=== PATIENT | male | born 1955 ===

== ENCOUNTER → 2020-05-23 | Outpatient (CLI) | payer BC ==
[2020-05-23 10:29] LABS: BASOPHILS ABSOLUTE AUTO 0.06 K/mm3 (0.00-0.23); BASOPHILS PERCENT AUTO 1 % (0-2); EOSINOPHILS ABSOLUTE AUTO 0.06 K/mm3 (0.00-0.68); EOSINOPHILS PERCENT AUTO 1 % (0-6); Hematocrit 46.7 % (37.0-53.0); Hemoglobin 15.8 g/dL (13.5-17.5); IMMATURE GRAN ABSOLUTE AUTO 0.04 K/mm3 (0.00-0.10); IMMATURE GRAN PERCENT AUTO 1 % (0-1); LYMPHOCYTES ABSOLUTE AUTO 1.39 K/mm3 (0.84-5.20); LYMPHOCYTES PERCENT AUTO 18 % (21-46); MONOCYTES PERCENT AUTO 9 % (4-13); Mean Corpuscular HGB 30.7 pg (26.0-34.0); Mean Corpuscular HGB Conc 33.8 g/dL (31.5-36.5); Mean Corpuscular Volume 91 fL (80-100); Mean Platelet Volume 11.5 fL (9.1-12.4); NEUTROPHILS ABSOLUTE AUTO 5.34 K/mm3 (1.96-9.15); NEUTROPHILS PERCENT AUTO 70 % (41-73); Platelet Count 231 K/mm3 (150-400); RDW Coefficient Variation 14.4 % (11.7-14.2); RDW Standard Deviation 48.5 fL (35.1-46.3); Red Blood Cell Count 5.15 M/mm3 (4.30-5.90); White Blood Cell Count 7.59 K/mm3 (4.00-11.30)
[2020-05-23 10:47] LABS: Alanine Aminotransfer (ALT/SGP 27 U/L (12-78); Albumin, Blood 3.9 g/dL (3.4-5.0); Albumin/Globulin Ratio 0.8 (0.8-1.8); Alk Phos 63 U/L (40-126); Anion Gap 12 mmol/L (6-16); Aspartate Aminotrans (AST/SGOT 24 U/L (12-37); Bilirubin, Total 1.3 mg/dL (0.1-1.0); Blood Urea Nitrogen 11 mg/dL (8-24); Bun/Creatinine Ratio 9.5 (12.0-20.0); CO2, Blood 24 mmol/L (21-32); Calcium, Blood 9.1 mg/dL (8.5-10.1); Chloride, Blood 100 mmol/L (98-108); Creatinine, Blood 1.16 mg/dL (0.60-1.20); Free Thyroxine 1.06 ng/dL (0.70-1.60); Glomerular Filtration Rate >60 (60-); Glucose, Blood 102 mg/dL (70-99); Potassium, Blood 3.6 mmol/L (3.5-5.5); Sodium, Blood 136 mmol/L (136-145); Thyroid Stimulating Hormone 1.781 uIU/mL (0.360-4.800); Total Protein, Blood 8.9 g/dL (6.4-8.2); Uric Acid, Blood 8.6 mg/dL (3.5-7.2)
== END | disposition home or self-care (01) ==
LOC: LAB SHORT 10:23 → LAB EV 10:23
PROVIDERS: General Practice
DX: I10 Essential (primary) hypertension (principal); Z87.39 Personal history of other diseases of the musculoskeletal system and connective tissue
CPT/HCPCS: 80053; 84439; 84443; 84550; 85025

== ENCOUNTER → 2020-12-13 | Outpatient (CLI) | payer BC ==
[2020-12-13 14:46] LABS: BASOPHILS ABSOLUTE AUTO 0.07 K/mm3 (0.00-0.23); BASOPHILS PERCENT AUTO 1 % (0-2); EOSINOPHILS ABSOLUTE AUTO 0.14 K/mm3 (0.00-0.68); EOSINOPHILS PERCENT AUTO 2 % (0-6); Hematocrit 51.2 % (37.0-53.0); Hemoglobin 16.9 g/dL (13.5-17.5); IMMATURE GRAN ABSOLUTE AUTO 0.05 K/mm3 (0.00-0.10); IMMATURE GRAN PERCENT AUTO 1 % (0-1); LYMPHOCYTES ABSOLUTE AUTO 1.84 K/mm3 (0.84-5.20); LYMPHOCYTES PERCENT AUTO 20 % (21-46); MONOCYTES ABSOLUTE AUTO 0.91 K/mm3 (0.16-1.47); MONOCYTES PERCENT AUTO 10 % (4-13); Mean Corpuscular HGB 30.5 pg (26.0-34.0); Mean Corpuscular Volume 92 fL (80-100); Mean Platelet Volume 12.3 fL (9.1-12.4); NEUTROPHILS ABSOLUTE AUTO 6.09 K/mm3 (1.96-9.15); NEUTROPHILS PERCENT AUTO 67 % (41-73); Platelet Count 229 K/mm3 (150-400); RDW Coefficient Variation 14.6 % (11.7-14.2); RDW Standard Deviation 49.9 fL (35.1-46.3); Red Blood Cell Count 5.54 M/mm3 (4.30-5.90)
[2020-12-13 15:11] LABS: Alanine Aminotransfer (ALT/SGP 25 U/L (12-78); Albumin, Blood 3.6 g/dL (3.4-5.0); Albumin/Globulin Ratio 0.7 (0.8-1.8); Alk Phos 65 U/L (40-126); Anion Gap 10 mmol/L (6-16); Aspartate Aminotrans (AST/SGOT 18 U/L (12-37); Bilirubin, Total 0.8 mg/dL (0.1-1.0); Blood Urea Nitrogen 14 mg/dL (8-24); Bun/Creatinine Ratio 9.4 (12.0-20.0); CO2, Blood 24 mmol/L (21-32); Chloride, Blood 104 mmol/L (98-108); Creatinine, Blood 1.49 mg/dL (0.60-1.20); Globulin, Blood 4.9 g/dL (2.2-4.0); Glomerular Filtration Rate 47 (60-); Glucose, Blood 133 mg/dL (70-99); Potassium, Blood 3.5 mmol/L (3.5-5.5); Sodium, Blood 138 mmol/L (136-145); Thyroid Stimulating Hormone 1.356 uIU/mL (0.360-4.800); Total Protein, Blood 8.5 g/dL (6.4-8.2); Troponin I <0.017 ng/mL (0.000-0.040)
== END | disposition home or self-care (01) ==
LOC: LAB EV 14:42 → LAB SHORT 14:42
PROVIDERS: Chiropractor
DX: R07.9 Chest pain, unspecified (principal); R00.2 Palpitations
CPT/HCPCS: 80053; 84443; 84484; 85025

== ENCOUNTER 2021-09-10 04:57 | Observation (INO) | payer OTHER, BC ==
[~2021-09-10] VITALS: Ht 188 cm; Wt 151.1 kg
[2021-09-10] MEDS ORDERED: LISI20 PO (05:26)
[2021-09-10] MEDS ORDERED: VALSARTAN320 MG PO (05:27)
[2021-09-10] MEDS ORDERED: MULVITA PO (05:28)
[2021-09-10] MEDS ORDERED: DIAZ5 PO (05:29)
[2021-09-10 06:21] LABS: BASOPHILS ABSOLUTE AUTO 0.04 K/mm3 (0.00-0.23); BASOPHILS PERCENT AUTO 0 % (0-2); EOSINOPHILS ABSOLUTE AUTO 0.07 K/mm3 (0.00-0.68); EOSINOPHILS PERCENT AUTO 1 % (0-6); Hematocrit 46.5 % (37.0-53.0); IMMATURE GRAN ABSOLUTE AUTO 0.05 K/mm3 (0.00-0.10); IMMATURE GRAN PERCENT AUTO 1 % (0-1); LYMPHOCYTES ABSOLUTE AUTO 1.41 K/mm3 (0.84-5.20); LYMPHOCYTES PERCENT AUTO 14 % (21-46); MONOCYTES ABSOLUTE AUTO 1.55 K/mm3 (0.16-1.47); MONOCYTES PERCENT AUTO 15 % (4-13); Mean Corpuscular HGB 31.2 pg (26.0-34.0); Mean Corpuscular HGB Conc 34.4 g/dL (31.5-36.5); Mean Corpuscular Volume 91 fL (80-100); Mean Platelet Volume 12.6 fL (9.1-12.4); NEUTROPHILS ABSOLUTE AUTO 7.33 K/mm3 (1.96-9.15); NEUTROPHILS PERCENT AUTO 70 % (41-73); Platelet Count 201 K/mm3 (150-400); RDW Coefficient Variation 13.6 % (11.7-14.2); RDW Standard Deviation 46.1 fL (35.1-46.3); Red Blood Cell Count 5.13 M/mm3 (4.30-5.90); White Blood Cell Count 10.45 K/mm3 (4.00-11.30)
[2021-09-10 06:34] LABS: Alanine Aminotransfer (ALT/SGP 21 U/L (12-78); Albumin, Blood 3.3 g/dL (3.4-5.0); Albumin/Globulin Ratio 0.7 (0.8-1.8); Alk Phos 67 U/L (50-136); Anion Gap 8 mmol/L (6-16); Aspartate Aminotrans (AST/SGOT 14 U/L (12-37); Bilirubin, Total 1.4 mg/dL (0.1-1.0); Blood Urea Nitrogen 11 mg/dL (8-24); Bun/Creatinine Ratio 9.9 (12.0-20.0); CO2, Blood 23 mmol/L (21-32); Calcium, Blood 8.9 mg/dL (8.5-10.1); Chloride, Blood 107 mmol/L (98-108); Creatinine, Blood 1.11 mg/dL (0.60-1.20); Glomerular Filtration Rate >60 (60-); Glucose, Blood 124 mg/dL (70-99); Potassium, Blood 3.3 mmol/L (3.5-5.5); Sodium, Blood 138 mmol/L (136-145); Total Protein, Blood 8.3 g/dL (6.4-8.2)
[2021-09-10] MEDS ORDERED: HYDCHL25 PO (22:01)
--- NOTE | 2021-09-11 01:00 | NUR ---
PATIENT STRAIGHT CATHC HIMSELF 4 TIMES PER DAY DUE TO HAVING A NEUROGENIC BLADDER. 16 COMORAN WAS USED. PATIENT TOLERATED PROCEDURE WELL. STERILE TEHCNIQUES MAINTAINED THROUGHOUT. 700ML DARK DARIA URINE DRAINED UPON INSERTION.
[2021-09-11 01:26] LABS: Source, Urine Foley catheter
[2021-09-11 01:34] LABS: Appearance, Urine Clear (Clear); Bilirubin, Urine Neg (Neg); Blood, Urine 4+ (Neg); Color, Urine Yellow (P-Yellow); Glucose Qualitative, Urine Neg (Neg); Ketones, Urine 2+ (Neg); Leukocyte Esterase, Urine Neg (Neg); Nitrite, Urine Neg (Neg); Protein, Urine 2+ (Neg); Urobilinogen, Urine 2+ (Normal)
[2021-09-11 02:09] LABS: White Blood Cells, Urine 0-2 /hpf (0-5)
[2021-09-11 02:10] LABS: Bacteria Few /hpf; Hyaline Casts 0-2 /lpf (0-2); Mucus Light (0-Heavy); Squamous Epithelial Cells Rare /hpf (Few)
--- NOTE | 2021-09-11 05:27 | NUR ---
PM SHIFT SUMMARY: PATIENT ARRIVED TO UNIT AROUND 2200. C/O CHRONIC PAIN X 3 DAYS AND RLE WEAKNESS. HE HAS INCOMPLETE T9 PARAPLEGIA. HE SAYS HE HEARD "A POP" IN HIS BACK WHEN HE WAS ATTEMPTING TO ROLL OVER IN BED. NORMALLY, HE IS ABLE TO GET HIMSELF INTO HIS WHEELCHAIR ALONE. I INSERTED A NAVAS DUE TO HIM HAVING A NEUROGENIC BLADDER. MEDICAL HISTORY IS PRETTY EXTENSIVE. HE HAS SOME ERYTHEMA AROUND GROIN AND UNDER BELLY. LARGE SCAR ON SPINE FROM PREVIOUS SURGERIES. CM IS TRYING TO GET HIM INTO [facility] UNTIL A BED IS AVAILABLE AT THE [facility] IN [place].
--- NOTE | 2021-09-11 10:03 | NUR ---
EFM Initial Interview with Community Cleat Maker 1. Who did you speak with? Spoke with patient 2. What is the patient's prior level of functions? Patient lives his and son. Patient is paraplegic and not able to perform ADL's independently. and son assists with all ADL's. Patient has an electric wheelchair and handicapped set-up in the home for ADL's. 3. Does patient still drive? No, family and [facility] provides [facility] as needed. 4. POA/PCP/NOK: NOK: Karrie [phone] /PCP COOLER CONVEYOR LOADER Clarissa Arizmendi 5. ANTICIPATED DISCHARGE NEEDS/GOALS: SNF/[facility] (ER caser up coordinated) - DME: SNF/patient has needed DME's -Home Health: TBD/no agency preference -Medication Management: self/family. -[facility] 6. List barriers to discharge: No barriers on this date 7. Discharge Plan: today: 09/11/21 at [facility]/Follow up with PCP within 7 days (NAVIN will coordinate) 8. PCP Follow up appointment: Will be scheduled within seven calendar days of discharge. Explained importance of scheduling and attendance. Confirmed Number: [phone] 9. OTHER COMMENTS: Patient is a and has service connection benefits
[2021-09-11] MEDS ORDERED: ENOX40I SC (10:23)
[2021-09-11] MEDS ORDERED: HYDR1TAB94 PO (10:23)
[2021-09-11] MEDS ORDERED: ACET325 PO (10:23)
[2021-09-11] MEDS ORDERED: IBUP400 PO (10:23)
[2021-09-11] MEDS ORDERED: DOCU100 PO (10:23)
[2021-09-11] MEDS ORDERED: SENN187 PO (10:24)
[2021-09-11] MEDS ORDERED: OMEP20ER PO (10:24)
[2021-09-11] MEDS ORDERED: POTA10T PO (10:24)
[2021-09-11] MEDS ORDERED: ASPI325 PO (10:24)
[2021-09-11 12:53] LABS: Influenza A, PCR NEGATIVE (NEGATIVE); Influenza B, PCR NEGATIVE (NEGATIVE); Resp Syncytial Virus, PCR NEGATIVE (NEGATIVE)
[2021-09-11 12:59] LABS: SARS-Cov-2 (COVID-19) PCR, MMC POSITIVE (NEGATIVE)
--- NOTE | 2021-09-11 14:45 | NUR ---
State COVID referral emailed to [email or web address] and [facility] for [facility].
--- NOTE | 2021-09-11 18:32 | NUR ---
DISCHARGE PT WAS DISCHARGED [facility]IA [facility] AT 1530. ALL PAP[employer]WORK SENT WITH TRANSPORT TEAM AND REPORT CALLED AND GIVEN TO NURSE AT [facility].
--- NOTE | 2021-09-12 07:48 | NUR ---
Per Dr. Nguyen discharge appropriate. Patient does not oppose discharge. [facility]: [facility]. Patient tested positive today. Date of discharge: 09/11/2021 Date of admission: 09/10/2021 Provisional diagnosis at time of admission: Intractable back pain Final Diagnosis at time of discharge: Intractable back pain Transportation provided by: [facility] Ordered: None needed. Follow-ups needed: [facility]IN will contact patient to schedule hospital follow-up visit. Reinforced need to attend follow-up with option of telehealth appointment (COVID Positive). [facility] will coordinate follow-up visit due to transportation schedule. Provider/PCP: NEELAM Arizmendi When: WITHIN 1 WEEK Specialty: N/A When: N/A Confirmed numbers: Patient [phone] Spouse Karrie [phone] Comment: Explained to patient to contact PCP if any questions regarding medication management, social service needs, and if condition worsens go to Urgent Care/ER (patient discharged to SNF). No barriers to discharge. Patient has a strong support network.
== END 2021-09-11 16:16 ==
LOC: ER 04:57 → MEDS 04:58 → ER 21:40 → MEDS 21:40
PROVIDERS: Emergency Medicine; Hospitalist; Internal Medicine; ADMIT Internal Medicine
DX: M54.50 Low back pain, unspecified (principal); G82.22 Paraplegia, incomplete; G89.29 Other chronic pain; N31.9 Neuromuscular dysfunction of bladder, unspecified; I71.2 Thoracic aortic aneurysm, without rupture; I10 Essential (primary) hypertension; I48.0 Paroxysmal atrial fibrillation; E78.5 Hyperlipidemia, unspecified; G47.33 Obstructive sleep apnea (adult) (pediatric); F32.A Depression, unspecified; G62.9 Polyneuropathy, unspecified; U07.1 COVID-19
CPT/HCPCS: 0241U; 51702; 72128; 72131; 80053; 81001; 85025; 93005; 93010; 96372; 96374; 96375; 97162; 97530; 99285-25; A9270; G0378; J1650; J2270; J2405; J3360

== ENCOUNTER 2024-07-16 18:54 | Emergency (ER) | payer BC ==
[~2024-07-16] VITALS: Ht 170.2 cm; Wt 113.4 kg
[~2024-07-16 18:54] MED LIST: ACET325 PO; ASPI325 PO; DIAZ5 PO; DOCU100 PO; ENOX40I SC; HYDCHL25 PO; HYDR1TAB94 PO; IBUP400 PO; LISI20 PO; MULVITA PO; OMEP20ER PO; POTA10T PO; SENN187 PO; VALSARTAN320 MG PO
[2024-07-16 20:00] LABS: BASOPHILS ABSOLUTE AUTO 0.08 K/mm3 (0.00-0.23); BASOPHILS PERCENT AUTO 1 % (0-2); EOSINOPHILS ABSOLUTE AUTO 0.21 K/mm3 (0.00-0.68); EOSINOPHILS PERCENT AUTO 2 % (0-6); Hematocrit 47.2 % (37.0-53.0); Hemoglobin 15.8 g/dL (13.5-17.5); IMMATURE GRAN ABSOLUTE AUTO 0.06 K/mm3 (0.00-0.10); IMMATURE GRAN PERCENT AUTO 1 % (0-1); LYMPHOCYTES ABSOLUTE AUTO 2.12 K/mm3 (0.84-5.20); LYMPHOCYTES PERCENT AUTO 18 % (21-46); MONOCYTES ABSOLUTE AUTO 1.02 K/mm3 (0.16-1.47); MONOCYTES PERCENT AUTO 9 % (4-13); Mean Corpuscular HGB 30.7 pg (26.0-34.0); Mean Corpuscular HGB Conc 33.5 g/dL (31.5-36.5); Mean Corpuscular Volume 92 fL (80-100); Mean Platelet Volume 11.5 fL (9.1-12.4); NEUTROPHILS ABSOLUTE AUTO 8.43 K/mm3 (1.96-9.15); NEUTROPHILS PERCENT AUTO 71 % (41-73); Platelet Count 246 K/mm3 (150-400); RDW Standard Deviation 47.8 fL (35.1-46.3); Red Blood Cell Count 5.14 M/mm3 (4.30-5.90); White Blood Cell Count 11.92 K/mm3 (4.00-11.30)
[2024-07-16 20:19] LABS: Albumin, Blood 3.4 g/dL (3.4-5.0); Albumin/Globulin Ratio 0.7 (0.8-1.8); Bilirubin, Total 0.4 mg/dL (0.1-1.0); Bun/Creatinine Ratio 15.4 (12.0-20.0); Creatinine, Blood 1.69 mg/dL (0.60-1.20); Globulin, Blood 5.2 g/dL (2.2-4.0); Potassium, Blood 3.4 mmol/L (3.5-5.5); Total Protein, Blood 8.6 g/dL (6.4-8.2)
[2024-07-16] MEDS ORDERED: Nitrofurantoin/Nitrofuran Mac 100 MG Cap PO ONE (23:55)
[2024-07-16] MEDS ORDERED: NITR100CA PO (23:59)
[2024-07-17 00:20] VITALS: BP 128/69
== END 2024-07-17 00:21 | disposition home or self-care (01) ==
LOC: ER 18:54
PROVIDERS: Student in an Organized Health Care Education/Training Program
DX: N30.00 Acute cystitis without hematuria (principal); I10 Essential (primary) hypertension; E78.5 Hyperlipidemia, unspecified; I48.91 Unspecified atrial fibrillation; Z86.73 Personal history of transient ischemic attack (TIA), and cerebral infarction without residual deficits; Z87.442 Personal history of urinary calculi; Z79.899 Other long term (current) drug therapy
CPT/HCPCS: 80053; 85025; 99283-25; A9270

== ENCOUNTER 2024-07-23 11:02 | Inpatient (IN) | payer OTHER, BC ==
[~2024-07-23] VITALS: Ht 188 cm; Wt 136.1 kg
[~2024-07-23 11:02] MED LIST changes: +NITR100CA PO
[2024-07-23 11:37] LABS: BASOPHILS ABSOLUTE AUTO 0.08 K/mm3 (0.00-0.23); BASOPHILS PERCENT AUTO 1 % (0-2); EOSINOPHILS ABSOLUTE AUTO 0.16 K/mm3 (0.00-0.68); EOSINOPHILS PERCENT AUTO 2 % (0-6); Hematocrit 40.7 % (37.0-53.0); Hemoglobin 13.9 g/dL (13.5-17.5); IMMATURE GRAN ABSOLUTE AUTO 0.07 K/mm3 (0.00-0.10); IMMATURE GRAN PERCENT AUTO 1 % (0-1); LYMPHOCYTES ABSOLUTE AUTO 1.21 K/mm3 (0.84-5.20); LYMPHOCYTES PERCENT AUTO 11 % (21-46); MONOCYTES ABSOLUTE AUTO 1.39 K/mm3 (0.16-1.47); MONOCYTES PERCENT AUTO 13 % (4-13); Mean Corpuscular HGB 30.9 pg (26.0-34.0); Mean Corpuscular HGB Conc 34.2 g/dL (31.5-36.5); Mean Corpuscular Volume 90 fL (80-100); NEUTROPHILS ABSOLUTE AUTO 7.79 K/mm3 (1.96-9.15); NEUTROPHILS PERCENT AUTO 73 % (41-73); Platelet Count 257 K/mm3 (150-400); RDW Coefficient Variation 13.8 % (11.7-14.2); RDW Standard Deviation 45.8 fL (35.1-46.3)
[2024-07-23 11:58] LABS: Albumin, Blood 2.7 g/dL (3.4-5.0); Albumin/Globulin Ratio 0.5 (0.8-1.8); Bilirubin, Total 0.9 mg/dL (0.1-1.0); Calcium, Blood 9.3 mg/dL (8.5-10.1); Creatinine, Blood 1.67 mg/dL (0.60-1.20); Globulin, Blood 5.3 g/dL (2.2-4.0); Potassium, Blood 3.2 mmol/L (3.5-5.5)
[2024-07-23] MEDS ORDERED: Gabapentin 300 MG Cap PO ONE (16:15)
[2024-07-23] MEDS ORDERED: Ketorolac Tromethamine 15mg Vial IV ONE (16:15)
[2024-07-23] MEDS ORDERED: Acetaminophen 500 MG Tab PO ONE (16:15)
[2024-07-23 16:42] LABS: Source, Urine Clean Catch
[2024-07-23 17:00] LABS: Bilirubin, Urine Neg (Neg); Blood, Urine 1+ (Neg); Color, Urine Yellow (P-Yellow); Glucose Qualitative, Urine Neg (Neg); Ketones, Urine Neg (Neg); Leukocyte Esterase, Urine 1+ (Neg); Nitrite, Urine Neg (Neg); Protein, Urine 1+ (Neg); Urobilinogen, Urine NORM (Normal)
[2024-07-23 17:19] LABS: Appearance, Urine Hazy (Clear)
[2024-07-23 17:20] LABS: Bacteria Many /hpf; Hyaline Casts 0-2 /lpf (0-2); Mucus Light (0-Heavy); Squamous Epithelial Cells Few /hpf (Few)
[2024-07-23] MEDS ORDERED: CefTRIAXone Sodium 1,000 MG in NS 100 ML IV ONE (17:40)
[2024-07-23] MEDS ORDERED: Acetaminophen 325 MG TABLET PO PRN (18:50)
[2024-07-23] MEDS ORDERED: FLU VACC TS2024-25(6MOS UP)/PF 45 MCG/0.5 ML SYRINGE IM ONE (18:55)
[2024-07-23] MEDS ORDERED: Ondansetron HCl 2 MG / ML 2ML Vial IV PRN (18:55)
[2024-07-23] MEDS ORDERED: Lactobacil 2-S.Thermo-Bifido 1 1 Cap PO SCH (21:00)
[2024-07-23] MEDS ORDERED: Docusate Sodium 100 MG Cap PO SCH (21:00)
[2024-07-23 21:42] VITALS: BP 150/98
[2024-07-23] MEDS ORDERED: HYDROcodone 5-APAP 325 TAB PO PRN (22:50)
[2024-07-23] MEDS ORDERED: Sennosides 8.6 MG Tab PO PRN (22:50)
[2024-07-23] MEDS ORDERED: Diazepam 5 MG Tab PO PRN (22:50)
[2024-07-23] MEDS ORDERED: HydrALAZINE HCl 20 MG / ML 1ML Vial IV PRN (22:55)
[2024-07-23] MEDS ORDERED: Potassium Chloride 20 MEQ TabCR PO ONE (23:00)
[2024-07-24 04:57] LABS: BASOPHILS ABSOLUTE AUTO 0.09 K/mm3 (0.00-0.23); BASOPHILS PERCENT AUTO 1 % (0-2); EOSINOPHILS ABSOLUTE AUTO 0.39 K/mm3 (0.00-0.68); EOSINOPHILS PERCENT AUTO 4 % (0-6); Hematocrit 39.7 % (37.0-53.0); Hemoglobin 13.4 g/dL (13.5-17.5); IMMATURE GRAN ABSOLUTE AUTO 0.06 K/mm3 (0.00-0.10); IMMATURE GRAN PERCENT AUTO 1 % (0-1); LYMPHOCYTES ABSOLUTE AUTO 2.05 K/mm3 (0.84-5.20); LYMPHOCYTES PERCENT AUTO 19 % (21-46); MONOCYTES ABSOLUTE AUTO 1.44 K/mm3 (0.16-1.47); MONOCYTES PERCENT AUTO 13 % (4-13); Mean Corpuscular HGB 31.4 pg (26.0-34.0); Mean Corpuscular HGB Conc 33.8 g/dL (31.5-36.5); Mean Corpuscular Volume 93 fL (80-100); NEUTROPHILS ABSOLUTE AUTO 6.98 K/mm3 (1.96-9.15); NEUTROPHILS PERCENT AUTO 64 % (41-73); Platelet Count 252 K/mm3 (150-400); RDW Coefficient Variation 13.8 % (11.7-14.2); RDW Standard Deviation 47.3 fL (35.1-46.3); Red Blood Cell Count 4.27 M/mm3 (4.30-5.90); White Blood Cell Count 11.01 K/mm3 (4.00-11.30)
[2024-07-24 05:24] LABS: Albumin, Blood 2.5 g/dL (3.4-5.0); Albumin/Globulin Ratio 0.5 (0.8-1.8); Bilirubin, Total 0.7 mg/dL (0.1-1.0); Bun/Creatinine Ratio 20.1 (12.0-20.0); Calcium, Blood 9.3 mg/dL (8.5-10.1); Creatinine, Blood 1.94 mg/dL (0.60-1.20); Globulin, Blood 5.2 g/dL (2.2-4.0); Magnesium, Blood 2.1 mg/dL (1.6-2.4); Potassium, Blood 2.7 mmol/L (3.5-5.5); Total Protein, Blood 7.7 g/dL (6.4-8.2)
[2024-07-24 05:47] VITALS: BP 160/89
[2024-07-24] MEDS ORDERED: Omeprazole 20 MG CapCR PO SCH (06:00)
--- NOTE | 2024-07-24 06:40 | NUR ---
Shift Summary Admitted to room 306 for uti last night- recent fatigue and decreased ability to perform ADLs and decreased urine output at home. w/c dependent at baseline & has a Ruchi lift at home however states at times is able to stand pivot to w/c with one assist on his stronger (Rt) leg, family members assist him with ADLs. Pt reports has a hx of a TBI as well as a back surgery at [place] that resulted in incomplete paraplegia, Is A& Ox4,pleasant,talkative. Blanchable redness lateral ankles otherwise skin intact Has 1+ pedal /ankle edema, Self caths at home on an irregular schedule, bladder scan was 363ml,called MD for straight cath order ,cathed ot approx 0130 for 450 ml imelda urine, ststes already feels much better after dose of IV rocephin he had in ED. Has PT/OT/ST & a outpatient case manager consult. Up early this a.m. and took his PPI however refused catheterization state slept very well is very comfortable and that too early to be cathed again.
[2024-07-24 07:15] VITALS: BP 145/85
[2024-07-24] MEDS ORDERED: Potassium Chloride 20 MEQ TabCR PO ONE (08:00)
[2024-07-24] MEDS ORDERED: Aspirin 325 MG Tab PO SCH (09:00)
[2024-07-24] MEDS ORDERED: Losartan Potassium 50 MG Tab PO SCH (09:00)
[2024-07-24] MEDS ORDERED: Enoxaparin 40 MG/0.4 ML SYR SC SCH (09:00)
[2024-07-24] MEDS ORDERED: Multivitamins 1 Tab PO SCH (09:00)
[2024-07-24] MEDS ORDERED: Miconazole Nitrate 2% 85 GM PWD TOP SCH (10:40)
[2024-07-24] MEDS ORDERED: Bisacodyl 10 MG Supp PR ONE (13:00)
[2024-07-24 14:52] VITALS: BP 129/89
[2024-07-24] MEDS ORDERED: Lidocaine HCl 2% Jelly 120MG/6ML SYR (20MG PER ML) TOP PRN (16:20)
[2024-07-24] MEDS ORDERED: Sod Phosphate/Sod Biphosphate 132 ML BTL PR ONE (17:05)
--- NOTE | 2024-07-24 17:34 | NUR ---
SUMMARY PT SLIGHT SLURRED SPEECH PER PT,STARTED 2 WEEKS AGO. NO DIFFICULTY SWALLOWING. PT UNABLE TO HAVE BM AFTER MULTIPLE ATTEMPS AND MEDICATIONS USED TO ASSIST WITH BM. FLEET ENEMA JUST ADMINISTERED WAITING FOR RESULTS, PHYSICAL THERAPY WORKED WITH PT, HE IS LIFT ASSIST. ALERT AND ORIENTED X4, ABLE TO EXPRESS NEEDS. REDDEND PAINFUL AREA NOTED ON LEFT ANKLE.
[2024-07-24] MEDS ORDERED: CefTRIAXone Sodium 1,000 MG in NS 100 ML IV SCH (18:00)
[2024-07-24 20:15] VITALS: BP 152/97
[2024-07-24] MEDS ORDERED: Docusate Sodium 100 MG Cap PO SCH (21:00)
--- NOTE | 2024-07-25 03:31 | NUR ---
SHIFT SUMMARY PT IS A&O X4, ABLE TO MAKE HIS NEEDS KNOWN, AND COOPERATIVE WITH CARE. NAVAS DRAINING TEA COLOR URINE>500MLS DURING THIS SHIFT. PT C/O UPPER BACKPAIN, CHRONIC, NORCO PRN ADMINISTERED ORDERED @HS. PT HAD A MEDIUM BM DURING THIS SHIFT, BASELINE CONTINENT, BUT WEARING ATTENDS DURING HOSPITAL STAY. NO ACUTE EVENTS DURING THIS SHIFT. BED AT THE LOWEST POSITION, CALL LIGHT W/I REACH.
[2024-07-25 04:18] VITALS: BP 152/85
[2024-07-25 06:03] LABS: Hematocrit 41.5 % (37.0-53.0); Hemoglobin 14.1 g/dL (13.5-17.5); Mean Corpuscular HGB 30.9 pg (26.0-34.0); Mean Corpuscular Volume 91 fL (80-100); Mean Platelet Volume 12.3 fL (9.1-12.4); Platelet Count 303 K/mm3 (150-400); RDW Coefficient Variation 13.8 % (11.7-14.2); RDW Standard Deviation 46.5 fL (35.1-46.3); Red Blood Cell Count 4.56 M/mm3 (4.30-5.90); White Blood Cell Count 27.86 K/mm3 (4.00-11.30)
[2024-07-25 06:29] LABS: BAND PERCENT MAN 9 % (0-8); BASOPHILS PERCENT MAN 0 % (0-2); EOSINOPHILS PERCENT MAN 0 % (0-6); LYMPHOCYTES % ATYPICAL MANUAL 1 % (0-0); LYMPHOCYTES ABSOLUTE MAN 1.67 K/mm3 (0.84-5.20); LYMPHOCYTES PERCENT MAN 5 % (21-46); MONOCYTES ABSOLUTE MAN 2.22 K/mm3 (0.16-1.47); MONOCYTES PERCENT MAN 8 % (4-13); NEUTROPHILS ABSOLUTE MAN 23.95 K/mm3 (1.96-9.15); SEG NEUTROPHILS PERCENT MAN 77 % (41-73); TOTAL CELLS COUNTED 100
[2024-07-25 06:40] LABS: Bun/Creatinine Ratio 21.6 (12.0-20.0); Calcium, Blood 9.1 mg/dL (8.5-10.1); Creatinine, Blood 1.94 mg/dL (0.60-1.20); Potassium, Blood 3.9 mmol/L (3.5-5.5)
[2024-07-25 07:47] VITALS: BP 132/80
[2024-07-25] MEDS ORDERED: NS 1,000 ML IV SCH (11:00)
--- NOTE | 2024-07-25 11:48 | NUR ---
LAB CALLED, STATES PRIOR VBG COLLECTION TOO OLD. NEED NEW ORDER. DONE
[2024-07-25 12:54] LABS: Base Excess Venous -2.2 mmol/L; Bicarbonate Venous 23.4 mmol/L (24.0-30.0); pH Blood Venous 7.45 (7.34-7.37)
[2024-07-25 15:27] VITALS: BP 98/61
[2024-07-25 17:42] VITALS: BP 109/62
--- NOTE | 2024-07-25 17:51 | NUR ---
PT SOFT BP, DISCUSSED WITH MEDICINE CHANGES TO BE MADE. PAIN MANAGED WITH AVAIL MEDS. FAMILY IN WITH PT TO VISIT. SEVERAL B/M'S TODAY. LOOSE AT THIS TIME. IV FLUIDS PER EMAR. ABX CONTINUE. NO NEW CONCERNS NOTED. BED IN LOW POSITION, CALL LITE IN REACH, CALLS APROP
[2024-07-25 20:03] VITALS: BP 133/67
[2024-07-26 02:46] VITALS: BP 101/55
--- NOTE | 2024-07-26 04:31 | NUR ---
LEAD ASSEMBLER SUMMARY VSS. ALERT TO QUESTIONS ASKED. CHEERFUL AFFECT WHEN TALKING WITH STAFF. NAVAS IN USE, DARK URINE, IN USE FOR RETENTION. CATH CARE DONE. INCONT OF FECES A FEW TIMES AND WAS CLEANED UP AND HAS BEEN TURNED FOR COMFORT AND SKIN MAINTENANCE. HAS BEEEN RSETING QUIETLY WITH FEW INTERRUPTIONS OTHERWISE. CALL LIGHT IN REACH, RAILS UP X 2 AND BED IN LOW POSITION FOR SAFETY. IVF HAS INFUSED. TOLERATING PO MEDS AND FLUIDS. MED TELE SR IN THE 'S. WILL CONTINUE TO MONITOR
[2024-07-26 06:08] LABS: BASOPHILS ABSOLUTE AUTO 0.11 K/mm3 (0.00-0.23); BASOPHILS PERCENT AUTO 0 % (0-2); EOSINOPHILS ABSOLUTE AUTO 0.22 K/mm3 (0.00-0.68); EOSINOPHILS PERCENT AUTO 1 % (0-6); Hematocrit 38.3 % (37.0-53.0); Hemoglobin 12.5 g/dL (13.5-17.5); IMMATURE GRAN ABSOLUTE AUTO 0.27 K/mm3 (0.00-0.10); IMMATURE GRAN PERCENT AUTO 1 % (0-1); LYMPHOCYTES ABSOLUTE AUTO 2.01 K/mm3 (0.84-5.20); LYMPHOCYTES PERCENT AUTO 8 % (21-46); MONOCYTES ABSOLUTE AUTO 2.16 K/mm3 (0.16-1.47); MONOCYTES PERCENT AUTO 8 % (4-13); Mean Corpuscular HGB 30.5 pg (26.0-34.0); Mean Corpuscular HGB Conc 32.6 g/dL (31.5-36.5); Mean Corpuscular Volume 93 fL (80-100); Mean Platelet Volume 12.4 fL (9.1-12.4); NEUTROPHILS ABSOLUTE AUTO 21.79 K/mm3 (1.96-9.15); NEUTROPHILS PERCENT AUTO 82 % (41-73); Platelet Count 269 K/mm3 (150-400); RDW Coefficient Variation 14.1 % (11.7-14.2); RDW Standard Deviation 48.2 fL (35.1-46.3); White Blood Cell Count 26.56 K/mm3 (4.00-11.30)
[2024-07-26 06:31] LABS: Bun/Creatinine Ratio 22.7 (12.0-20.0); Creatinine, Blood 2.07 mg/dL (0.60-1.20); Potassium, Blood 3.4 mmol/L (3.5-5.5)
[2024-07-26] MEDS ORDERED: Potassium Chloride 20 MEQ in NS 90 ML IV ONE (07:20)
[2024-07-26] MEDS ORDERED: NS 250 ML IV PRN (07:30)
[2024-07-26 07:40] VITALS: BP 100/62
[2024-07-26] MEDS ORDERED: NS 500 ML IV SCH (08:00)
[2024-07-26] MEDS ORDERED: Losartan Potassium 50 MG Tab PO SCH (09:00)
[2024-07-26] MEDS ORDERED: Metoprolol Succinate 50 MG TABCR PO SCH (09:00)
[2024-07-26 15:40] VITALS: BP 87/60
[2024-07-26] MEDS ORDERED: NS 1,000 ML IV SCH (15:45)
--- NOTE | 2024-07-26 16:01 | NUR ---
PT BYPOTENSIVE, NON SYMPTOMATIC, ORIENTED X4. DR. MEYER NOTIFIED, SEE UPDATED ORDERS
--- NOTE | 2024-07-26 16:21 | NUR ---
SUMMARY PT HYPOTENSIVE THIS AFTERNOON, IV FLUIDS RESTARTED. PT IS DROWSY, WAKES EASILY AND ORIENTED X4, VERY TALKATIVE, NAVAS CATHETER DRAINING TO GRAVITY, Q 2 HR TURNS, 2X SMALL FOUL SMELLING BOWEL MOVEMENTS. PT SPEECH IS STILL SLIGHTLY SLURRED. ABLE TO MAKE NEEDS KNOWN, PT FRIEND AT BEDSIDE.
[2024-07-26 16:59] VITALS: BP 107/62
--- NOTE | 2024-07-26 18:12 | NUR ---
PT SITTING UP IN BED FAMILY AT BEDSIDE, VS REASSESSED, SBP 100S.
[2024-07-26 20:40] VITALS: BP 106/59
--- NOTE | 2024-07-27 04:16 | NUR ---
SHIFT SUMMARY ADMITTED FOR UTI/SEPSIS. FULL CODE. IV ANTIB RX ARE SCHEDULED. IV FLUIDS INFUSING. PARTIAL PARAPLEGIC. [facility] PATIENT. NAVAS IN PLACE, HE SELF-CATHS AT HOME. HE IS NORMALLY ABLE TO TRANSFER TO HIS WHEELCHAIR. AT THIS TIME HE IS A LIFT PATIENT DUE TO WEAKNESS. TELEMETRY: NSR @ 75 BPM. REGULAR DIET. DIARRHEA REPORTED ON PREVIOUS SHIFT. HE REPORTS CHRONIC MUSCLE SPASMS OCCASIONALLY, AND I DID MEDICATE HIM FOR THIS. HE IS A&O X4. [facility]OUGH THE [facility].
[2024-07-27 05:30] VITALS: BP 124/71
[2024-07-27 05:36] LABS: Hematocrit 37.7 % (37.0-53.0); Hemoglobin 12.4 g/dL (13.5-17.5); Mean Corpuscular HGB 30.4 pg (26.0-34.0); Mean Corpuscular HGB Conc 32.9 g/dL (31.5-36.5); Mean Corpuscular Volume 92 fL (80-100); Mean Platelet Volume 12.6 fL (9.1-12.4); Platelet Count 274 K/mm3 (150-400); RDW Coefficient Variation 13.9 % (11.7-14.2); RDW Standard Deviation 47.5 fL (35.1-46.3); Red Blood Cell Count 4.08 M/mm3 (4.30-5.90); White Blood Cell Count 20.14 K/mm3 (4.00-11.30)
[2024-07-27 07:17] LABS: Bun/Creatinine Ratio 29.7 (12.0-20.0); Calcium, Blood 8.7 mg/dL (8.5-10.1); Creatinine, Blood 1.55 mg/dL (0.60-1.20); Potassium, Blood 3.4 mmol/L (3.5-5.5)
[2024-07-27 07:40] VITALS: BP 116/64
[2024-07-27] MEDS ORDERED: Potassium Chloride 20 MEQ TabCR PO ONE (08:00)
[2024-07-27 12:39] LABS: CORONAVIRUS COVID-19 AG Negative (NEGATIVE)
[2024-07-27 15:37] VITALS: BP 104/64
--- NOTE | 2024-07-27 16:47 | NUR ---
NO ACUTE CHANGES. PT HAS BEEN AOX4 AND COOPRATIVE OF CARE. PT HAS HAD LOOSE SMEARS NO MAJOR BMS. PT ATTEMPTS TO HELP TURN MUCH HE CAN. TWO PERSON TO CHANGE. PT CAN MAKE NEEDS KNOWN. NAVAS PATIENT NO DISTRESS NOTED. CALL LIGHT SUSY REACH WILL CONTINUE TO MONITOR.
[2024-07-27 19:50] VITALS: BP 115/77
--- NOTE | 2024-07-28 04:14 | NUR ---
SHIFT SUMMARY ADMITTED FOR UTI/SEPSIS. FULL CODE. ANTIB RX ARE SCHEDULED. PLAN IS FOR DC TO A [facility] FACILITY WHEN ARRANGEMENTS CAN BE MADE. IV FLUIDS ARE INFUSING. NAVAS IN PLACE, HE STRAIGHT CATHS AT HOME. HE IS A PARTIAL PARAPLEGIC WITH A NEUROGENIC BLADDER. HE TRANSFERS NORMALLY 1 ASSIST AT HOME TO A WHEELCHAIR, HERE WE ARE USING A LIFT. TELEMETRY: NSR @ 69 BPM. HE STATES HE ALTERNATES BETWEEN BOUTS OF CONSTIPATION AND DIARRHEA CHRONICALLY. RECENT DIARRHEA REPORTED TO BE SLOWLY IMPROVING THIS SHIFT, WITH SOME LIQUID STOOLS BEGINNING TO TAKE FORM.
[2024-07-28 04:33] VITALS: BP 116/53
[2024-07-28 05:14] LABS: BASOPHILS ABSOLUTE AUTO 0.08 K/mm3 (0.00-0.23); BASOPHILS PERCENT AUTO 1 % (0-2); EOSINOPHILS ABSOLUTE AUTO 0.36 K/mm3 (0.00-0.68); EOSINOPHILS PERCENT AUTO 2 % (0-6); Hematocrit 35.9 % (37.0-53.0); IMMATURE GRAN ABSOLUTE AUTO 0.21 K/mm3 (0.00-0.10); IMMATURE GRAN PERCENT AUTO 1 % (0-1); LYMPHOCYTES ABSOLUTE AUTO 2.07 K/mm3 (0.84-5.20); LYMPHOCYTES PERCENT AUTO 14 % (21-46); MONOCYTES ABSOLUTE AUTO 1.41 K/mm3 (0.16-1.47); MONOCYTES PERCENT AUTO 9 % (4-13); Mean Corpuscular HGB 30.7 pg (26.0-34.0); Mean Corpuscular HGB Conc 33.4 g/dL (31.5-36.5); Mean Corpuscular Volume 92 fL (80-100); Mean Platelet Volume 12.3 fL (9.1-12.4); NEUTROPHILS ABSOLUTE AUTO 10.96 K/mm3 (1.96-9.15); NEUTROPHILS PERCENT AUTO 73 % (41-73); Platelet Count 280 K/mm3 (150-400); RDW Standard Deviation 47.6 fL (35.1-46.3); Red Blood Cell Count 3.91 M/mm3 (4.30-5.90); White Blood Cell Count 15.09 K/mm3 (4.00-11.30)
[2024-07-28 05:47] LABS: Bun/Creatinine Ratio 23.5 (12.0-20.0); Calcium, Blood 8.5 mg/dL (8.5-10.1); Creatinine, Blood 1.36 mg/dL (0.60-1.20); Potassium, Blood 3.6 mmol/L (3.5-5.5)
[2024-07-28 07:49] VITALS: BP 129/73
[2024-07-28 15:36] VITALS: BP 130/70
--- NOTE | 2024-07-28 16:33 | NUR ---
NO ACUTE CHANGES AOX4 AND COOPERATIVE OF CARE. PT HELPS TRY TO ROLL AND WAS ABLE TO HAVE A BED BATH AND SHEET CHANGE TODAY. PT WAS LIFTED UP TO RECLINER AND SAT UP FOR AWHILE. PT LIFTED BACK TO BED AND WAS COMPLAINING OF LEG CRAMP PAIN AND TREATED PER EMAR. NO DISTRESS NOTED CALLL LIGHT WITHIN REACH WILL CONINTUE TO MONITOR.
[2024-07-28 20:52] VITALS: BP 147/70
--- NOTE | 2024-07-29 03:24 | NUR ---
SHIFT SUMM: PT IS A PLEASANT 63 YO FULL CODE WHO WAS ADMITTED FOR UTI/SEPSIS AND WEAKNESS.PT HAS A NAVAS BUT STRAIGHT CATHS AT HOME. PT HAS SOME CONFUSION BUT REDIRECTS WELL AND COOPERATIVE WITH CARE. PT IS ON CONT. FLUIDS AND 100ML/HR. PT HAS HAD SOME BUTTOCKSAND BACK PAIN TONIGHT THAT HE WAS MEDICATED FOR.PT IS A LIFT PT AND REQUIRES 2-3 TRANSFER AND CHANGE. PT IS ON TELE AND NSR IN THE 70'S WITH A HIST OF AFIB. [facility]. PT HAS BEEN RESTING MOST OF THE EVENING AND HAD ONE FORMED BM.CALL LIGHT IN REACH.
[2024-07-29 04:13] VITALS: BP 126/61
[2024-07-29 04:31] VITALS: BP 114/61
[2024-07-29 05:12] LABS: BASOPHILS ABSOLUTE AUTO 0.09 K/mm3 (0.00-0.23); BASOPHILS PERCENT AUTO 1 % (0-2); EOSINOPHILS ABSOLUTE AUTO 0.27 K/mm3 (0.00-0.68); EOSINOPHILS PERCENT AUTO 2 % (0-6); Hematocrit 36.8 % (37.0-53.0); IMMATURE GRAN ABSOLUTE AUTO 0.24 K/mm3 (0.00-0.10); IMMATURE GRAN PERCENT AUTO 2 % (0-1); LYMPHOCYTES ABSOLUTE AUTO 2.09 K/mm3 (0.84-5.20); LYMPHOCYTES PERCENT AUTO 15 % (21-46); MONOCYTES ABSOLUTE AUTO 1.41 K/mm3 (0.16-1.47); MONOCYTES PERCENT AUTO 10 % (4-13); Mean Corpuscular HGB 30.6 pg (26.0-34.0); Mean Corpuscular HGB Conc 32.6 g/dL (31.5-36.5); Mean Corpuscular Volume 94 fL (80-100); Mean Platelet Volume 12.1 fL (9.1-12.4); NEUTROPHILS PERCENT AUTO 70 % (41-73); Platelet Count 279 K/mm3 (150-400); RDW Coefficient Variation 13.8 % (11.7-14.2); RDW Standard Deviation 47.4 fL (35.1-46.3); Red Blood Cell Count 3.92 M/mm3 (4.30-5.90)
[2024-07-29 05:59] LABS: Bun/Creatinine Ratio 21.8 (12.0-20.0); Calcium, Blood 8.8 mg/dL (8.5-10.1); Creatinine, Blood 1.19 mg/dL (0.60-1.20); Magnesium, Blood 2.1 mg/dL (1.6-2.4); Phosphorus, Blood 2.9 mg/dL (2.5-4.9); Potassium, Blood 3.6 mmol/L (3.5-5.5)
[2024-07-29 08:06] VITALS: BP 143/76
[2024-07-29 16:51] VITALS: BP 134/82
--- NOTE | 2024-07-29 17:55 | NUR ---
SHIFT SUMMARY PT IS A/OX3-4, LIFT PT D/T INCREASED WEAKNESS. PT REPORTS WHEELCHAIR AT BASELINE. NO ACUTE EVENTS THROUGHOUT THIS SHIFT. NAVAS IN PLACE DRAINING TEA COLORED URINE. TELE RUNNING NORMAL SINUS RYTHYM IN THE 70'S. NS INFUSING @ 100 ML/HR. RECIEVING IV ANTIBIOTICS. FAMILY AND FRIENDS AT BEDSIDE THROUGHOUT THIS AFTERNOON.
[2024-07-29 21:29] VITALS: BP 136/71
[2024-07-30 02:01] VITALS: BP 162/80
[2024-07-30] MEDS ORDERED: FentaNYL Citrate 50 MCG/ML 2 ML Injection IV PRN (04:00)
--- NOTE | 2024-07-30 04:15 | NUR ---
HOSPITALIST CALLED FOR PAIN MGMT ON PT. PRN'S GIVEN AND NOT HELPING W/PAIN. DR ORDERED FENTANYL 25-50 MCG Q4 PRN FOR SEVERE PAIN.
--- NOTE | 2024-07-30 04:28 | NUR ---
SHIFT SUMM: PT HAS BEEN RESTING BUT HAS HAD PAINFUL LEGS THROUGHOUT THE NIGHT(SEE EMAR) I HAD TO CALL HOSPITALIST FOR PAIN MGMT (SEE PREV.NOTE).PT HAS A NAVAS AND CATH CARE WAS GIVEN. PT HAS CALL LIGHT IN REACH AND CALLS NEEDED.
[2024-07-30 05:15] LABS: BASOPHILS ABSOLUTE AUTO 0.11 K/mm3 (0.00-0.23); BASOPHILS PERCENT AUTO 1 % (0-2); EOSINOPHILS ABSOLUTE AUTO 0.35 K/mm3 (0.00-0.68); EOSINOPHILS PERCENT AUTO 3 % (0-6); Hematocrit 35.9 % (37.0-53.0); Hemoglobin 11.6 g/dL (13.5-17.5); IMMATURE GRAN ABSOLUTE AUTO 0.36 K/mm3 (0.00-0.10); IMMATURE GRAN PERCENT AUTO 3 % (0-1); LYMPHOCYTES ABSOLUTE AUTO 1.85 K/mm3 (0.84-5.20); LYMPHOCYTES PERCENT AUTO 14 % (21-46); MONOCYTES ABSOLUTE AUTO 1.55 K/mm3 (0.16-1.47); MONOCYTES PERCENT AUTO 12 % (4-13); Mean Corpuscular HGB 30.2 pg (26.0-34.0); Mean Corpuscular HGB Conc 32.3 g/dL (31.5-36.5); Mean Corpuscular Volume 94 fL (80-100); Mean Platelet Volume 12.1 fL (9.1-12.4); NEUTROPHILS ABSOLUTE AUTO 8.64 K/mm3 (1.96-9.15); NEUTROPHILS PERCENT AUTO 67 % (41-73); Platelet Count 287 K/mm3 (150-400); RDW Coefficient Variation 13.7 % (11.7-14.2); RDW Standard Deviation 46.9 fL (35.1-46.3); Red Blood Cell Count 3.84 M/mm3 (4.30-5.90); White Blood Cell Count 12.86 K/mm3 (4.00-11.30)
[2024-07-30 05:48] LABS: Bun/Creatinine Ratio 17.1 (12.0-20.0); Calcium, Blood 8.2 mg/dL (8.5-10.1); Creatinine, Blood 1.11 mg/dL (0.60-1.20); Magnesium, Blood 1.7 mg/dL (1.6-2.4); Phosphorus, Blood 2.4 mg/dL (2.5-4.9); Potassium, Blood 3.7 mmol/L (3.5-5.5)
[2024-07-30 07:57] VITALS: BP 154/78
[2024-07-30] MEDS ORDERED: Mag Sulfate 1 GM/D5% 100ML 100 ML IV STA (08:08)
[2024-07-30] MEDS ORDERED: HYDROmorphone HCl/Pf 1MG SYR IV ONE (11:00)
[2024-07-30] MEDS ORDERED: Lidocaine 4% 1 Patch TOP SCH (11:00)
[2024-07-30] MEDS ORDERED: Methocarbamol 500 MG Tab PO SCH (14:00)
[2024-07-30 16:13] VITALS: BP 161/84
--- NOTE | 2024-07-30 18:16 | NUR ---
SHIFT SUMMARY PT IS A/OX4. LIFT PT D/T INCREASED WEAKNESS. PT REPORTS WHEELCHAIR AT BASELINE AND ABLE TO TRANSFER HIMSELF. PT IS ON TELE RUNNING NORMAL SINUS RYTHYM. WHITE BLOOD CELL COUNT TRENDING DOWN. PT CONTINUES IV ANTIBIOTICS. NAVAS IN PLACE, PATENT AND DRAINING TEA/YELLOW COLORED URINE. PT REPORTS SELF CATHETERIZATION AT HOME. NS RUNNING AT 100 ML/HR. AWAITING DISCHARGE TO [facility].
[2024-07-30 20:43] VITALS: BP 210/124
[2024-07-30] MEDS ORDERED: Cyclobenzaprine HCl 10 MG Tab PO ONE (22:00)
[2024-07-31 03:42] VITALS: BP 150/80
--- NOTE | 2024-07-31 04:16 | NUR ---
SHIFT SUMMARY: PT AOX4 WITH SOME SLOW SLURRED SPEACH BUT IS ABLE TO MAKE NEEDS KNOWN AND CALLS APPROPRIATELY. VERY PLEASANT AND POLITE. SEVERAL COMPLAINTS OF PAIN, MEDICATED PER EMR. COMPLAINED OF INTENSE SPASMS IN LOWER L LEG. CALLED HOSPITALIST AND 1 TIME DOSE OF FLEXARIL GIVEN. PT RESPONDED WELL UNTIL NEXT SET OF MEDICATIONS GIVEN. HAD SOME HIGHER BP WHILE EXPERINECING SPASM BUT WENT DOWN ONCE RESOLVED. HAD SOME SMALL, LOOSE BMS. NAVAS STILL IN PLACE AND DRAINING. PT IN BED RESTING, BED IN LOWEST POSITION, CALL LIGHT IN REACH. CONTINUING CARE.
[2024-07-31 06:24] LABS: Hematocrit 34.9 % (37.0-53.0); Hemoglobin 11.7 g/dL (13.5-17.5); Mean Corpuscular HGB 30.7 pg (26.0-34.0); Mean Corpuscular HGB Conc 33.5 g/dL (31.5-36.5); Mean Corpuscular Volume 92 fL (80-100); Mean Platelet Volume 11.9 fL (9.1-12.4); Platelet Count 293 K/mm3 (150-400); RDW Coefficient Variation 13.7 % (11.7-14.2); RDW Standard Deviation 46.4 fL (35.1-46.3); Red Blood Cell Count 3.81 M/mm3 (4.30-5.90); White Blood Cell Count 11.87 K/mm3 (4.00-11.30)
[2024-07-31 06:45] LABS: Bun/Creatinine Ratio 16.7 (12.0-20.0); Calcium, Blood 8.4 mg/dL (8.5-10.1); Creatinine, Blood 1.02 mg/dL (0.60-1.20); Magnesium, Blood 1.9 mg/dL (1.6-2.4); Potassium, Blood 3.8 mmol/L (3.5-5.5)
[2024-07-31 07:32] VITALS: BP 146/83
[2024-07-31] MEDS ORDERED: VISBIOME 112.51 EACH PO (08:53)
[2024-07-31] MEDS ORDERED: Robaxin750 MG PO (08:53)
[2024-07-31] MEDS ORDERED: CEPH500 PO (08:53)
[2024-07-31 10:23] LABS: CORONAVIRUS COVID-19 AG Negative (NEGATIVE)
--- NOTE | 2024-07-31 12:02 | NUR ---
DISCHARGE PT DC TO [facility], AOX4, COOPERATIVE, ABLE TO MAKE NEEDS KNOWN. IV DC'D BY [employer] ESCOBAR, TELE DC'D WELL. TRANSPORTED BY [facility], DC PAPERWORK AND BELONGING WENT WITH TRANSPORT. REPORT GIVEN TO SARIK[facility] AT [facility] BY THIS RN.
== END 2024-07-31 12:03 | DRG 690 ==
LOC: ER 11:02 → ERHOLD 11:03 → MEDS 11:03 → ENPENDDIS 07-31 09:16 → MEDS 07-31 12:03
PROVIDERS: Family Medicine; Hospitalist; Internal Medicine; Student in an Organized Health Care Education/Training Program; ADMIT Student in an Organized Health Care Education/Training Program
DX: N39.0 Urinary tract infection, site not specified (principal); G82.20 Paraplegia, unspecified; E87.20 Acidosis, unspecified; Z99.3 Dependence on wheelchair; E66.9 Obesity, unspecified; Z68.38 Body mass index [BMI] 38.0-38.9, adult; N18.30 Chronic kidney disease, stage 3 unspecified; I12.9 Hypertensive chronic kidney disease with stage 1 through stage 4 chronic kidney disease, or unspecified chronic kidney disease; E78.5 Hyperlipidemia, unspecified; N31.9 Neuromuscular dysfunction of bladder, unspecified; F32.A Depression, unspecified; G47.33 Obstructive sleep apnea (adult) (pediatric); G62.9 Polyneuropathy, unspecified; G89.4 Chronic pain syndrome; E87.6 Hypokalemia; I48.0 Paroxysmal atrial fibrillation; Z86.73 Personal history of transient ischemic attack (TIA), and cerebral infarction without residual deficits; Z87.442 Personal history of urinary calculi; Z79.82 Long term (current) use of aspirin; Z79.899 Other long term (current) drug therapy
CPT/HCPCS: 36415; 51701; 51702; 80048; 80053; 81001; 82803; 83605; 83735; 84100; 84132; 85025; 85027; 87040; 87086; 87426-QW; 93971; 96365; 96372; 96375; 97110; 97162; 97165; 97530; 99285-25; A9270; G0378; J0696; J1171; J1650; J1885; J3010; J3475; J3480; J7030

== ENCOUNTER 2024-09-16 11:20 | Emergency (ER) | payer OTHER, BC ==
[~2024-09-16] VITALS: Ht 188 cm; Wt 124.7 kg
[~2024-09-16 11:20] MED LIST changes: +CEPH500 PO; +Robaxin750 MG PO; +VISBIOME 112.51 EACH PO
[2024-09-16] MEDS ORDERED: ASPIRIN REGIMEN81 MG PO (11:38)
[2024-09-16] MEDS ORDERED: AMOX250 (11:39)
[2024-09-16 11:54] LABS: BASOPHILS ABSOLUTE AUTO 0.06 K/mm3 (0.00-0.23); BASOPHILS PERCENT AUTO 1 % (0-2); EOSINOPHILS ABSOLUTE AUTO 0.13 K/mm3 (0.00-0.68); EOSINOPHILS PERCENT AUTO 1 % (0-6); Hematocrit 42.2 % (37.0-53.0); Hemoglobin 13.9 g/dL (13.5-17.5); IMMATURE GRAN ABSOLUTE AUTO 0.04 K/mm3 (0.00-0.10); IMMATURE GRAN PERCENT AUTO 0 % (0-1); LYMPHOCYTES ABSOLUTE AUTO 1.16 K/mm3 (0.84-5.20); LYMPHOCYTES PERCENT AUTO 11 % (21-46); MONOCYTES ABSOLUTE AUTO 1.35 K/mm3 (0.16-1.47); MONOCYTES PERCENT AUTO 13 % (4-13); Mean Corpuscular HGB 30.2 pg (26.0-34.0); Mean Corpuscular HGB Conc 32.9 g/dL (31.5-36.5); Mean Corpuscular Volume 92 fL (80-100); Mean Platelet Volume 11.7 fL (9.1-12.4); NEUTROPHILS ABSOLUTE AUTO 7.96 K/mm3 (1.96-9.15); NEUTROPHILS PERCENT AUTO 74 % (41-73); Platelet Count 238 K/mm3 (150-400); RDW Coefficient Variation 14.6 % (11.7-14.2); RDW Standard Deviation 48.9 fL (35.1-46.3); Red Blood Cell Count 4.61 M/mm3 (4.30-5.90)
[2024-09-16] MEDS ORDERED: Lactated Ringer's 1,000 ML IV ONE (12:05)
[2024-09-16 12:11] LABS: Alanine Aminotransfer (ALT/SGP 15 U/L (12-78); Albumin/Globulin Ratio 0.7 (0.8-1.8); Alk Phos 72 U/L (50-136); Anion Gap 11 mmol/L (3-11); Aspartate Aminotrans (AST/SGOT 13 U/L (12-37); Bilirubin, Total 0.7 mg/dL (0.1-1.0); Blood Urea Nitrogen 27 mg/dL (8-24); Bun/Creatinine Ratio 16.1 (12.0-20.0); CO2, Blood 25 mmol/L (21-32); Calcium, Blood 8.8 mg/dL (8.5-10.1); Chloride, Blood 105 mmol/L (98-108); Creatinine, Blood 1.68 mg/dL (0.60-1.20); Globulin, Blood 4.5 g/dL (2.2-4.0); Glomerular Filtration Rate 43 (60-); Glucose, Blood 111 mg/dL (70-99); Potassium, Blood 3.1 mmol/L (3.5-5.5); Sodium, Blood 138 mmol/L (136-145); Total Protein, Blood 7.5 g/dL (6.4-8.2)
[2024-09-16 12:40] LABS: Source, Urine Straight Cath
[2024-09-16] MEDS ORDERED: Diazepam 5 MG Tab PO ONE (12:45)
[2024-09-16 12:51] LABS: Appearance, Urine Clear (Clear); Bilirubin, Urine Neg (Neg); Blood, Urine 1+ (Neg); Color, Urine Yellow (P-Yellow); Glucose Qualitative, Urine Neg (Neg); Ketones, Urine Neg (Neg); Leukocyte Esterase, Urine 2+ (Neg); Nitrite, Urine Neg (Neg); Protein, Urine 1+ (Neg); Specific Gravity, Urine 1.015 (1.003-1.022); Urobilinogen, Urine NORM (Normal)
[2024-09-16] MEDS ORDERED: Potassium Chloride 20 MEQ TabCR PO ONE (12:55)
[2024-09-16 12:57] LABS: Bacteria Few /hpf; Squamous Epithelial Cells Few /hpf (Few); White Blood Cells, Urine 25-50 /hpf (0-5)
[2024-09-16 14:58] LABS: Adenovirus F 40/41 Not Detected (NOT DETECT); Astrovirus Not Detected (NOT DETECT); Campylobacter Sp Not Detected (NOT DETECT); Cryptosporidium Not Detected (NOT DETECT); Cyclospora Cayetanensis Not Detected (NOT DETECT); E. Coli O157 Not Detected (NOT DETECT); Entamoeba Histolytica Not Detected (NOT DETECT); Enteroaggregative E. coli-EAEC Not Detected (NOT DETECT); Enteropathogenic E. coli-EPEC Not Detected (NOT DETECT); Enterotoxigenic E. coli-ETEC Not Detected (NOT DETECT); Giardia Lamblia Not Detected (NOT DETECT); Norovirus GI/GII Not Detected (NOT DETECT); Plesiomonas Shigelloides Not Detected (NOT DETECT); Rotavirus A Not Detected (NOT DETECT); Salmonella Sp Not Detected (NOT DETECT); Sapovirus Not Detected (NOT DETECT); Shiga Toxin-prod E. coli-STEC Not Detected (NOT DETECT); Shigella/Enteroin E. coli-EIEC Not Detected (NOT DETECT); Vibrio Cholerae Not Detected (NOT DETECT); Vibrio Sp Not Detected (NOT DETECT); Yersinia Enterocolitica Not Detected (NOT DETECT)
[2024-09-16 17:39] VITALS: BP 147/89
== END 2024-09-16 18:16 | disposition home or self-care (01) ==
LOC: ER 11:20
PROVIDERS: Emergency Medicine
DX: E86.0 Dehydration (principal); R82.81 Pyuria; R53.1 Weakness; I10 Essential (primary) hypertension; Z86.73 Personal history of transient ischemic attack (TIA), and cerebral infarction without residual deficits; Z88.8 Allergy status to other drugs, medicaments and biological substances; Z79.82 Long term (current) use of aspirin; Z79.899 Other long term (current) drug therapy
CPT/HCPCS: 36415; 80053; 81001; 83605; 85025; 87040; 87086; 87507; 93005; 93010; 96360; 99285-25; A9270; J7120